=== PATIENT | male | born 1970 | race Caucasian/White ===

== ENCOUNTER 2022-12-25 06:38 | Day surgery (SDC) | payer SELFPAY ==
[2022-12-25] MEDS ORDERED: Ringers Lactate 1,000 ML IV ONE ×2 (07:08→09:55)
[2022-12-25] MEDS: CEFAZOLIN SODIUM 1 GM/VIAL ONE ×2 (08:13→08:50)
[2022-12-25] MEDS: LIDOCAINE HCL/EPINEPHRINE 20 ML MDV ONE ×2 (08:13→08:47)
[2022-12-25] MEDS ORDERED: BACITRACIN OINTMENT 14 GM TUBE TOP ONE (08:17)
[2022-12-25] MEDS ORDERED: FENTANYL CITR 100 MCG/2 ML ONE (08:31)
[2022-12-25] MEDS ORDERED: propofoL 200 MG/20 ML VIAL IV ONE (08:31)
[2022-12-25] MEDS ORDERED: dexAMETHasone 10 MG/ML VIAL ONE (08:32)
[2022-12-25] MEDS ORDERED: KETOROLAC 30 MG/ML INJ ONE (08:32)
[2022-12-25] MEDS ORDERED: MIDAZOLAM HCL 2 MG/2 ML INJ ONE (08:32)
[2022-12-25] MEDS ORDERED: ROCURONIUM 50 MG/5 ML VIAL IV ONE (08:32)
[2022-12-25] MEDS ORDERED: LIDOCAINE 2% MPF 5 ML VIAL ONE (08:34)
[2022-12-25] MEDS ORDERED: ONDANSETRON 4 MG/2 ML VIAL ONE (08:34)
[2022-12-25] MEDS ORDERED: EPHEDRINE SULF 50 MG/ML VIAL ONE (09:23)
[2022-12-25] MEDS ORDERED: GLYCOPYRROLATE 0.2 MG/ML SYR ONE (10:01)
[2022-12-25 10:25] VITALS: TEMP 97
[2022-12-25 11:29] VITALS: BP 130/70; O2SAT 96
--- NOTE | 2022-12-26 14:24 | OP ---
Date of Procedure: 12/25/2022 Surgeon: NIC ROLAND Preoperative Diagnosis: Bilateral cervical lymphadenitis. Postoperative Diagnosis: Bilateral cervical lymphadenitis. Procedure: Excision of deep space neck cervical lymph nodes from bilateral neck under general sedati on. Anesthesia: General endotracheal anesthesia was administered. I also infiltrated approximately 2 mL of 1% lidocaine with 1:100,000 epinephrine at the incision sites. Estimated Blood Loss: Scant, less than 2 mL. Specimens: Lymph node and fatty tissue was removed from bilateral upper neck level 2 and submitted t o Pathology for evaluation, more importantly flow cytometry for lymphoma protocol. Findings: Several bilateral upper neck lymph nodes, largest one measuring approximately 2 cm. No ot her abnormal findings. Complications: None. Disposition: Stable. The patient tolerated the procedure well. Indications For Procedure: Patient is a pleasant 52-year-old male who presented to my outpatient cli lisa with chronic lymphadenitis that has not reduced in size and it is in fact causing pain in very lo calized areas of the neck in level 2. These were indications to bring the patient to operating suite for the above-mentioned procedure as he has had these enlarged lymph nodes for at least 3 months. H e understood, all questions were answered. Risks versus benefits and complications were explained in detail and a consent form was signed which was placed in the chart. Description Of Procedure: Patient was transferred from the preoperative holding area to the operativ e suite by the Department of Anesthesia, placed on the operative table supine, sedated, and intubated in normal fashion. I infiltrated approximately 10 mL of 1% lidocaine with 1:100,000 epinephrine int o bilateral upper neck incision sites and the patient was sterilely prepped and draped. The lymph nodes were removed by starting on the right side of the neck in which a horizontal incision was made through the epidermis to the area of the platysma. A monopolar electrocautery was used to divide the platysma and then I used a LigaSure to finally dissect out the lymph nodes. The lymph nod es were handed off the field and placed in a specimen cup. Hemostasis was achieved with bipolar caut yordan. The subplatysmal tissue and platysma were then reapproximated after irrigating the wound bed. I utilized a 3-0 Vicryl suture in a simple interrupted fashion to reapproximate these layers of tissu e. The dermis was then reapproximated. The subcutaneous dermis was reapproximated with 3-0 Vicryl i n a simple interrupted fashion followed by epidermal layer closure with 4-0 Monocryl in a subcuticula r fashion. Next, my attention was placed to the left level 2 neck in which horizontal incision was made into a s kin crease through the dermis down to the platysmal layer utilizing a #15 blade scalpel and monopolar electrocautery. Platysma was then divided with the LigaSure and at the subplatysmal level, I was ab le to locate several lymph nodes with fatty tissue and this was removed with the LigaSure. The speci men was handed off the field and the wound bed was irrigated with saline. The platysma and subcutane ous and dermal tissue layers were reapproximated with 3-0 Vicryl in a simple interrupted fashion foll owed by epidermal layer closure with 4-0 Monocryl in a subcuticular fashion. Compressive dressings w ere placed. He tolerated the procedure well and will be discharged home on antibiotic and analgesic medication. He will follow up in 1 to 2 weeks or sooner if needed. SHAYLA/VEE Voice ID: [id number] Report ID: [id number]
== END 2022-12-25 11:31 | disposition home or self-care (01) ==
LOC: OR 06:38
PROVIDERS: ATTEND Otolaryngology Facial Plastic Surgery
PROC: 07B10ZX Excision of Right Neck Lymphatic, Open Approach, Diagnostic (ICD-10-PCS; 2022-12-25)
PROC: 07B20ZX Excision of Left Neck Lymphatic, Open Approach, Diagnostic (ICD-10-PCS; principal; 2022-12-25 09:00)
DX: I88.1 Chronic lymphadenitis, except mesenteric (principal)
CPT/HCPCS: 88305; J0690; J1100; J2001; J2250; J2405; J2704; J3010; J7120